=== PATIENT | male | born 1985 | race Caucasian/White ===

== ENCOUNTER 2018-03-30 23:32 | Observation (INO) | payer BC ==
--- OUTSIDE RECORDS SUMMARY | 2018-03-30 23:35 | XMS REPORT | Clinical Summary ---
:1985 Author Organization [facility] Address [address] [place] [address] Care Team Providers Name Role Phone Devon Hill Primary Care Provider Allergies No Known Allergies Medications Medication Sig Dispensed Refills Start Date End Date Status lisinopril Take 10 mg by 0 Active (PRINIVIL,ZESTRIL) mouth daily. 10 MG tablet omeprazole Take 40 mg by 0 Active (PRILOSEC) 40 MG mouth daily. capsule tadalafil (CIALIS) Take 5 mg by 0 Active 5 MG tablet mouth daily as needed for Erectile Dysfunction. celecoxib Take 1 capsule 7 capsule 0 03/24/2017 03/31/2017 (CELEBREX) 200 MG (200 mg total) by capsule mouth daily for 7 days. cefadroxil Take 1 capsule 14 capsule 0 03/23/2017 03/30/2017 (DURICEF) 500 MG (500 mg total) by capsule mouth 2 (two) times daily for 7 days. Active Problems Problem Noted Date Surgery, elective 03/23/2017 Admission for reversal of vasectomy 03/23/2017 Social History Tobacco Use Types Packs/Day Years Used Date Never Smoker Smokeless Tobacco: Current User Snuff Comments: 2 cans/week. Alcohol Use Drinks/Week oz/Week Comments Yes 24 Cans of beer 14.4 Sex Assigned at Date Recorded Not on file Job Start Date Occupation Industry Not on file Not on file Not on file Travel History Travel Start Travel End No recent travel history available. Last Filed Vital Signs Not on file Plan of Treatment Not on file Results Not on fileafter 03/29/2017 Insurance Payer Benefit Plan / Group Subscriber ID Type Phone Address [employer] xxxxxxxxx Advance Directives For more information, please contact:[address] [phone] Code Status Date Activated Date Inactivated Comments Full Code 03/23/2017 8:06 AM 03/23/2017 6:27 PM This code status was determined by: Patient
--- OUTSIDE RECORDS SUMMARY | 2018-03-30 23:35 | XMS REPORT ---
:1985 [facility] Address [address] [place] [address] Dr. Torres [address] [place] [id number] Care Team Providers Name Role Phone SHANTAAMYHARSHIL FELDMAN I. Unavailable Unavailable Problems This patient has no known problems. Allergies, Adverse Reactions, Alerts This patient has no known allergies or adverse reactions. Medications This patient has no known medications. Results Test Description Test Time Test Comments Text Results Atomic Results Result Comments ELECTROLYTES 2017-03-18 14:34:00 Test Item Value Reference Range Comments SODIUM (BEAKER) (test upin=414) 132 meq/L 136-145 POTASSIUM (BEAKER) (test txsx=364) 3.9 meq/L 3.5-5.1 CHLORIDE (BEAKER) (test fciu=429) 99 meq/L 98-107 CO2 (BEAKER) (test xjdv=809) 30 meq/L 22-29 BUN AND [id number] 14:34:00 Test Item Value Reference Range Comments BLOOD UREA NITROGEN 8 mg/dL 7-21 (BEAKER) (test pyll=001) CREATININE (BEAKER) (test 0.98 mg/dL 0.57-1.25 rqwc=054) EGFR (BEAKER) (test 89 mL/min/1.73 sq m ESTIMATED GFR IS NOT gflj=8816) ACCURATE CREATININE CLEARANCE IN PREDICTING GLOMERULAR FILTRATION RATE. ESTIMATED GFR IS NOT APPLICABLE FOR DIALYSIS PATIENTS. [id number] 14:18:00 Test Item Value Reference Range Comments HEMOGLOBIN (BEAKER) (test rvll=311) 15.7 GM/DL 13.7-17.5
[2018-03-31] MEDS ORDERED: ASPIRIN 81 MG CHEWABLE TABLET ONE (00:19)
[2018-03-31 00:34] LABS: Absolute Lymphocytes (CBC) 1.6 K/uL (0.7-4.9); Absolute Monocytes 0.5 K/uL (0.1-1.3); Absolute Neutrophil 6.2 K/uL (1.8-8.0); Basophils % 0.6 % (0-1.3); Eosinophils % 1.5 % (0-4.4); Lymphocytes % 19.2 % (15.3-44.8); MPV 9.7 fL (7.6-11.3); RBC Red Blood Cell Count 5.55 M/uL (4.33-5.43)
[2018-03-31 00:43] LABS: Protime INR 1.02
[2018-03-31 00:54] LABS: ALT/SGPT 42 U/L (12-78); AST/SGOT 23 U/L (15-37); Albumin 4.5 g/dL (3.4-5.0); Alkaline Phosphatase 73 U/L (45-117); BUN Blood Urea Nitrogen 10 mg/dL (7-18); Bicarbonate 27 mmol/L (21-32); Bilirubin Direct 0.3 mg/dL (0-0.2); Bilirubin Total 1.2 mg/dL (0.2-1.0); Glucose Level 131 mg/dL (74-106); Magnesium 2.3 mg/dL (1.8-2.4); NT PRO-BNP 9 pg/mL (<125); Potassium 3.4 mmol/L (3.5-5.1); Sodium Level 138 mmol/L (136-145); Troponin (Emerg Dept Use Only) < 0.02 ng/mL (0.0-0.045)
[2018-03-31] MEDS ORDERED: NA CHLORIDE 0.9% 1,000 ML ONE (01:25)
--- NOTE | 2018-03-31 02:59 | ER ---
Nurse's Notes [facility] Name: Federico Resendiz Age: 32 yrs Sex: Male : 1985 Arrival Date: 03/30/2018 Time: 23:41 Bed 19 Private MD: Devon Saldana R Diagnosis: Other chest pain;Essential (primary) hypertension;Hypokalemia Presentation: 03/30 23:57 Presenting complaint: Patient states: while I'm sitting sudden central and left arm rr5 pain felt at 2130H tonight associated with numbness feeling cold and weak of the left arm. pain score of 6/10. right now I don't have any pain only numbness on the left arm. Transition of care: patient was not received from another setting of care. Onset of symptoms was March 30, 2018 at 21:30. Risk Assessment: Do you want to hurt yourself or someone else? Patient reports no desire to harm self or others. Initial Sepsis Screen: Does the patient meet any 2 criteria? No. Patient's initial sepsis screen is negative. Initial Sepsis Screen: Does the patient have a suspected source of infection? No. Patient's initial sepsis screen is negative. Care prior to arrival: None. 23:57 Method Of Arrival: Ambulatory rr5 23:57 Acuity: BUD 3 rr5 Historical: - Allergies: 03/31 00:00 No Known Allergies; rr5 - Home Meds: 00:00 Lisinopril Oral [Active]; Omeprazole Oral [Active]; Lorazepam Oral [Active]; Cialis rr5 oral oral [Active]; - PMHx: 00:00 Hypertension; acid reflux; rr5 - PSHx: 00:00 Vasectomy; reversal of vasectomy; rr5 - Immunization history:: Adult Immunizations up to date. - Social history:: Smoking status: Patient uses tobacco products, chewing tobacco, Patient uses alcohol, admits to "couple of beers" a day. Patient/guardian denies using street drugs. - Ebola Screening: : Patient negative for fever greater than or equal to 101.5 degrees Fahrenheit, and additional compatible Ebola Virus Disease symptoms Patient denies exposure to infectious person Patient denies travel to an Ebola-affected area in the 21 days before illness onset. Screenin:00 Abuse screen: Denies threats or abuse. Denies injuries from another. Nutritional rr5 screening: No deficits noted. Tuberculosis screening: No symptoms or risk factors identified. Fall Risk None identified. Assessment: 00:00 General: Appears in no apparent distress. comfortable, Behavior is calm, cooperative, rr5 appropriate for age. Pain: Complains of pain in chest Pain radiates to left arm Pain currently is 0 out of 10 on a pain scale. Quality of pain is described as aching, Pain began suddenly, Is intermittent. Neuro: Level of Consciousness is awake, alert, obeys commands, Oriented to person, place, time, situation, Appropriate for age Reports numbness in left arm. Cardiovascular: Reports chest pain, Capillary refill < 3 seconds Patient's skin is warm and dry. 00:00 Respiratory: Airway is patent Respiratory effort is even, unlabored, Respiratory rr5 pattern is regular, symmetrical. GI: No signs and/or symptoms were reported involving the gastrointestinal system. : Urine is clear. EENT: No signs and/or symptoms were reported regarding the EENT system. Derm: No signs and/or symptoms reported regarding the dermatologic system. Musculoskeletal: No signs and/or symptoms reported regarding the musculoskeletal system. 01:00 Reassessment: Patient appears in no apparent distress at this time. Patient is alert, rr5 oriented x 3, equal unlabored respirations, skin warm/dry/pink. Patient states feeling better. Patient states symptoms have improved. 02:00 Reassessment: Patient appears in no apparent distress at this time. Patient is alert, rr5 oriented x 3, equal unlabored respirations, skin warm/dry/pink. repeat cardiac enzymes sent. no complaints made. Patient states feeling better. Patient states symptoms have improved. Vital Signs: 03/30 23:57 BP 155 / 90; Pulse 96; Resp 18; Temp 98.4; Pulse Ox 98% ; Weight 92.99 kg; Height 6 ft. rr5 1 in. (185.42 cm); Pain 0/10; 03/31 01:00 BP 141 / 70; Pulse 85; Resp 16; Pulse Ox 99% ; rr5 01:30 BP 134 / 86; Pulse 84; Resp 17; Pulse Ox 99% ; rr5 02:00 BP 135 / 86; Pulse 75; Resp 17; Pulse Ox 99% ; rr5 03:00 BP 131 / 70; Pulse 62; Resp 17; Pulse Ox 98% ; rr5 03:50 BP 135 / 83; Pulse 60; Resp 16; Pulse Ox 100% ; rr5 03/30 23:57 Body Mass Index 27.05 (92.99 kg, 185.42 cm) rr5 ED Course: 03/30 23:41 Patient arrived in ED. am2 23:41 Devon Saldana MD is Private Physician. am2 23:46 Brice Ch, RN is Primary Nurse. rr5 23:48 Nabeel Kelly PA is PHCP. cp 23:49 Nabeel Bellamy MD is Attending Physician. cp 23:59 Triage completed. rr5 03/31 00:00 Arm band placed on. EKG completed in triage. Results shown to MD. EKG completed in rr5 triage. Results shown to MD. 00:00 Patient has correct armband on for positive identification. Placed in gown. Bed in low rr5 position. Call light in reach. Side rails up X 1. nuclear monitoring technician on. Pulse ox on. NIBP on. 00:15 Inserted saline lock: 20 gauge in right antecubital area, using aseptic technique. rr5 Blood collected. inserted by [employer] tech. 00:15 No provider procedures requiring assistance completed. Patient maintains SpO2 rr5 saturation greater than 95% on room air. 00:45 XRAY Chest (1 view) Sent. mw2 00:49 XRAY Chest (1 view) In Process Unspecified. EDMS 02:57 Devon Saldana MD is Hospitalizing Provider. virgilio 03:53 Patient admitted, IV remains in place. intact, No redness/swelling at site. rr5 04:15 Urine Dipstick--Ancillary (enter results) Sent. rr5 04:16 UDS Sent. rr5 Administered Medications: 00:17 Drug: Aspirin Chewable Tablet 324 mg Route: PO; rr5 02:55 Follow up: Response: No adverse reaction rr5 01:19 Drug: NS 0.9% 1000 ml Route: IV; Rate: 1 bolus; Site: right antecubital; rr5 02:02 Follow up: Response: No adverse reaction; IV Status: Completed infusion; IV Intake: rr5 1000ml 03:05 Drug: Lopressor 25 mg Route: PO; rr5 04:15 Follow up: Response: No adverse reaction rr5 03:06 Drug: Lovenox 1 mg/kg Route: Sub-Q; Site: right lower abdomen; rr5 04:16 Follow up: Response: No adverse reaction rr5 03:08 Drug: Potassium Effervescent Tablet 25 mEq Route: PO; rr5 04:15 Follow up: Response: No adverse reaction rr5 Intake: 02:02 IV: 1000ml; Total: 1000ml. rr5 Outcome: 02:58 Decision to Hospitalize by Provider. [facility] 03:50 Admitted to Med/surg accompanied by nurse, via wheelchair, with chart, Report called to rr5 03:50 Condition: stable 03:50 Instructed on the need for admit. 04:17 Patient left the ED. rr5 Signatures: Dispatcher [employer] EDUT Nabeel Bellamy MD MD cha Page, Corey, PA PA cp Moreno, Amanda [facility] Brenda Rice 2 Brice Ch RN RN rr5 Corrections: (The following items were deleted from the chart) 00:27 00:15 Inserted saline lock: 20 gauge in right antecubital area, using aseptic rr5 technique. Blood collected. rr5
--- NOTE | 2018-03-31 02:59 | EDPHYS ---
Physician Documentation [facility] Name: Federico Resendiz Age: 32 yrs Sex: Male : 1985 Arrival Date: 03/30/2018 Time: 23:41 Bed 19 Private MD: Devon Saldana R ED Physician Nabeel Bellamy HPI: 03/30 23:55 This 32 yrs old Male presents to ER via Ambulatory with complaints of Chest cp Pain. 23:55 The patient or guardian reports chest pain that is located primarily in the anterior cp chest wall, left. 23:55 The pain radiates to the left arm. Associated signs and symptoms: Pertinent positives: cp numbness/tingling of left arm, Pertinent negatives: abdominal pain, weakness. The chest pain is described as aching. Duration: The patient or guardian reports a single episode, that is now resolved, that lasted 1.5 hour(s). Historical: - Allergies: 03/31 00:00 No Known Allergies; rr5 - Home Meds: 00:00 Lisinopril Oral [Active]; Omeprazole Oral [Active]; Lorazepam Oral [Active]; Cialis rr5 oral oral [Active]; - PMHx: 00:00 Hypertension; acid reflux; rr5 - PSHx: 00:00 Vasectomy; reversal of vasectomy; rr5 - Immunization history:: Adult Immunizations up to date. - Social history:: Smoking status: Patient uses tobacco products, chewing tobacco, Patient uses alcohol, admits to "couple of beers" a day. Patient/guardian denies using street drugs. - Ebola Screening: : Patient negative for fever greater than or equal to 101.5 degrees Fahrenheit, and additional compatible Ebola Virus Disease symptoms Patient denies exposure to infectious person Patient denies travel to an Ebola-affected area in the 21 days before illness onset. ROS: 00:00 Constitutional: Negative for body aches, chills, fever, poor PO intake. cp 00:00 Eyes: Negative for injury, pain, redness, and discharge. cp 00:00 ENT: Negative for drainage from ear(s), ear pain, sore throat, difficulty swallowing, difficulty handling secretions. 00:00 Neck: Negative for pain with movement, stiffness, tenderness. 00:00 Cardiovascular: Positive for chest pain, Negative for edema, palpitations. 00:00 Respiratory: Negative for cough, shortness of breath, wheezing. 00:00 Abdomen/GI: Negative for abdominal pain, nausea, vomiting, and diarrhea, black/tarry stool, rectal bleeding. 00:00 Back: Negative for pain at rest, pain with movement, radiated pain. 00:00 : Negative for urinary symptoms. 00:00 MS/extremity: Positive for paresthesias, of the left arm, Negative for injury or acute deformity, decreased range of motion, swelling. 00:00 Skin: Negative for cellulitis, rash. 00:00 Neuro: Negative for altered mental status, headache, syncope, weakness. 00:00 All other systems are negative. Exam: 03/30 23:55 ECG was reviewed by the Attending Physician. cp 03/31 00:05 Constitutional: The patient appears in no acute distress, alert, awake, cp non-diaphoretic, non-toxic, well developed, well nourished. 00:05 Head/Face: Normocephalic, atraumatic. Eyes: Pupils equal round and reactive to light, cp extra-ocular motions intact. Lids and lashes normal. Conjunctiva and sclera are non-icteric and not injected. Cornea within normal limits. Periorbital areas with no swelling, redness, or edema. ENT: Nares patent. No nasal discharge, no septal abnormalities noted. Tympanic membranes are normal and external auditory canals are clear. Oropharynx with no redness, swelling, or masses, exudates, or evidence of obstruction, uvula midline. Mucous membranes moist. Chest/axilla: Normal chest wall appearance and motion. Nontender with no deformity. No lesions are appreciated. Cardiovascular: Regular rate and rhythm with a normal S1 and S2. No gallops, murmurs, or rubs. Normal PMI, no JVD. No pulse deficits. Respiratory: Lungs have equal breath sounds bilaterally, clear to auscultation and percussion. No rales, rhonchi or wheezes noted. No increased work of breathing, no retractions or nasal flaring. Abdomen/GI: Soft, non-tender, with normal bowel sounds. No distension or tympany. No guarding or rebound. No evidence of tenderness throughout. Skin: Warm, dry with normal turgor. Normal color with no rashes, no lesions, and no evidence of cellulitis. MS/ Extremity: Pulses equal, no cyanosis. Neurovascular intact. Full, normal range of motion. Neuro: Awake and alert, GCS 15, oriented to person, place, time, and situation. Cranial nerves II-XII grossly intact. Motor strength 5/5 in all extremities. Sensory grossly intact. Cerebellar exam normal. Normal gait. 02:10 ECG was reviewed by the Attending Physician. cp Vital Signs: 03/30 23:57 BP 155 / 90; Pulse 96; Resp 18; Temp 98.4; Pulse Ox 98% ; Weight 92.99 kg; Height 6 ft. rr5 1 in. (185.42 cm); Pain 0/10; 03/31 01:00 BP 141 / 70; Pulse 85; Resp 16; Pulse Ox 99% ; rr5 01:30 BP 134 / 86; Pulse 84; Resp 17; Pulse Ox 99% ; rr5 02:00 BP 135 / 86; Pulse 75; Resp 17; Pulse Ox 99% ; rr5 03:00 BP 131 / 70; Pulse 62; Resp 17; Pulse Ox 98% ; rr5 03:50 BP 135 / 83; Pulse 60; Resp 16; Pulse Ox 100% ; rr5 03/30 23:57 Body Mass Index 27.05 (92.99 kg, 185.42 cm) rr5 MDM: 03/30 23:51 Patient medically screened. cp 03/31 01:00 Differential diagnosis: abnormal EKG, acute myocardial infarction, acute pericarditis, cp esophagitis, gastritis, gastroesophageal reflux disease (GERD), pericarditis, pleurisy, pneumonia, pneumothorax, pulmonary embolus, stable angina, unstable angina. 03:00 Data reviewed: vital signs, nurses notes, lab test result(s), EKG, radiologic studies, cp plain films. 03:00 Test interpretation: by ED physician or midlevel provider: ECG, plain radiologic cp studies. 03/31 00:03 Order name: Basic Metabolic Panel; Complete Time: 01:05 cp 03/31 01:05 Interpretation: Normal except: K 3.4; GLUC 131; GFR 75. cp 03/31 00:03 Order name: CBC with Diff; Complete Time: 01:05 cp 03/31 01:06 Interpretation: Normal except: RBC 5.55; MCV 82.8. cp 03/31 00:03 Order name: LFT's; Complete Time: 01:05 cp 03/31 00:03 Order name: Magnesium; Complete Time: 01:05 cp 03/31 00:03 Order name: NT PRO-BNP; Complete Time: 01:05 cp 03/31 00:03 Order name: PT-INR; Complete Time: 01:05 cp 03/31 00:03 Order name: Troponin (emerg Dept Use Only); Complete Time: 01:05 cp 03/31 00:03 Order name: XRAY Chest (1 view) cp 03/31 00:03 Order name: D-Dimer; Complete Time: 01:05 cp 03/31 00:13 Order name: UDS cp 03/31 01:47 Order name: Troponin (emerg Dept Use Only); Complete Time: 02:39 cp 03/31 03:33 Order name: Urine Dipstick--Ancillary (enter results) gm 03/31 04:06 Order name: Urine Dipstick-Ancillary EDMS 03/31 00:03 Order name: EKG; Complete Time: 00:05 cp 03/31 00:03 Order name: Cardiac monitoring; Complete Time: 00:06 cp 03/31 00:03 Order name: EKG - Nurse/Tech; Complete Time: 00:06 cp 03/31 00:03 Order name: IV Saline Lock; Complete Time: 00:17 cp 03/31 00:03 Order name: Labs collected and sent; Complete Time: 00:17 cp 03/31 00:03 Order name: O2 Per Protocol; Complete Time: 00:07 cp 03/31 00:03 Order name: O2 Sat Monitoring; Complete Time: 00:07 cp 03/31 01:47 Order name: EKG - Nurse/Tech; Complete Time: 02:13 cp 03/31 01:47 Order name: EKG; Complete Time: 01:47 cp 03/31 01:47 Order name: Repeat Cardiac Enzymes at: 0200; Complete Time: 02:02 cp 03/31 02:56 Order name: PO challenge: juice; Complete Time: 03:09 virgilio EC/23 23:55 Rate is 94 beats/min. Rhythm is regular. NM interval is normal. QRS interval is normal. cp QT interval is normal. Interpreted by me. Reviewed by me. 03/31 02:10 Rate is 80 beats/min. Rhythm is regular. NM interval is normal. QRS interval is normal. cp QT interval is normal. T waves are Inverted in leads III, aVF. Interpreted by me. Reviewed by me. Administered Medications: 00:17 Drug: Aspirin Chewable Tablet 324 mg Route: PO; rr5 02:55 Follow up: Response: No adverse reaction rr5 01:19 Drug: NS 0.9% 1000 ml Route: IV; Rate: 1 bolus; Site: right antecubital; rr5 02:02 Follow up: Response: No adverse reaction; IV Status: Completed infusion; IV Intake: rr5 1000ml 03:05 Drug: Lopressor 25 mg Route: PO; rr5 04:15 Follow up: Response: No adverse reaction rr5 03:06 Drug: Lovenox 1 mg/kg Route: Sub-Q; Site: right lower abdomen; rr5 04:16 Follow up: Response: No adverse reaction rr5 03:08 Drug: Potassium Effervescent Tablet 25 mEq Route: PO; rr5 04:15 Follow up: Response: No adverse reaction rr5 Disposition: 08:50 Co-signature as Attending Physician, Nabeel Bellamy MD I agree with the assessment and virgilio plan of care. Disposition: 03/31/18 02:58 Hospitalization ordered by Devon Saldana for Observation. Preliminary diagnosis are Other chest pain, Essential (primary) hypertension, Hypokalemia. - Bed requested for Telemetry/MedSurg (observation). - Status is Observation. rr5 - Condition is Stable. - Problem is new. - Symptoms have improved. UTI on Admission? No Signatures: Dispatcher [employer] EDMS Nabeel Bellamy MD MD cha Page, Corey, PA PA cp Garcia, Cindy, RN RN cg Brice Ch RN RN rr5 Corrections: (The following items were deleted from the chart) 02:58 02:58 Hospitalization Ordered by Devon Saldana MD for Observation. Preliminary diagnosis virgilio is Other chest pain; Essential (primary) hypertension. Bed requested for Telemetry/MedSurg (observation). Status is Observation. Condition is Stable. Problem is new. Symptoms have improved. UTI on Admission? No. virgilio 03:05 02:58 03/31/2018 02:58 Hospitalization Ordered by Devon Saldana MD for Observation. cg Preliminary diagnosis is Other chest pain; Essential (primary) hypertension; Hypokalemia. Bed requested for Telemetry/MedSurg (observation). Status is Observation. Condition is Stable. Problem is new. Symptoms have improved. UTI on Admission? No. virgilio 04:17 03:05 03/31/2018 02:58 Hospitalization Ordered by Devon Saldana MD for Observation. rr5 Preliminary diagnosis is Other chest pain; Essential (primary) hypertension; Hypokalemia. Bed requested for Telemetry/MedSurg (observation). Status is Observation. Condition is Stable. Problem is new. Symptoms have improved. UTI on Admission? No.
[2018-03-31] MEDS ORDERED: ENOXAPARIN 100 MG/ML SYR SQ ONE (03:09)
[2018-03-31] MEDS ORDERED: METOPROLOL TAR 25 MG TAB ONE (03:09)
[2018-03-31] MEDS ORDERED: POTASSIUM 25 MEQ EFFERV TAB ONE (03:09)
[2018-03-31 04:06] LABS: Urine Blood NEGATIVE (NEG); Urine Glucose NEGATIVE (NEG); Urine Protein NEGATIVE (NEG); Urine pH 6.5 (5.0-7.0)
[2018-03-31] MEDS ORDERED: MORPHINE 4 MG/ML SYR IV PRN (04:23)
[2018-03-31] MEDS ORDERED: ONDANSETRON 4 MG/2 ML VIAL IV PRN (04:23)
[2018-03-31] MEDS ORDERED: ACETAMINOPHEN 500 MG TAB PO PRN (04:23)
[2018-03-31 04:31] LABS: Barbiturates NEGATIVE (NEGATIVE); Benzodiazepines NEGATIVE (NEGATIVE); Cocaine NEGATIVE (NEGATIVE); METHAMPHETAM NEGATIVE (NEGATIVE); Methadone NEGATIVE (NEGATIVE); Opiates NEGATIVE (NEGATIVE); Phencyclidine NEGATIVE (NEGATIVE); THC Cannibis NEGATIVE (NEGATIVE)
[2018-03-31] MEDS: METOPROLOL TAR 25 MG TAB PO SCH ×2 (05:05→17:55)
[2018-03-31 05:10] VITALS: BMI 26.2
[2018-03-31 05:43] VITALS: O2SAT 100
--- NOTE | 2018-03-31 06:41 | RAD REPORT ---
EXAM DESCRIPTION: RAD - Chest Single View - 03/31/2018 12:43 am CLINICAL HISTORY: Left-sided chest and arm pain, hypertension COMPARISON: March 2012 TECHNIQUE: AP portable chest image was obtained 0028 hours . FINDINGS: Lungs are clear. Heart and vasculature are normal. No measurable pleural effusion and no p neumothorax. No acute bony abnormality seen. No acute aortic findings suspected. IMPRESSION: No acute cardiopulmonary process. No significant interval change.
[2018-03-31 08:53] LABS: Urine Appearance CLEAR; Urine Bilirubin NEGATIVE (NEG); Urine Blood NEGATIVE (NEG); Urine Color YELLOW; Urine Glucose NEGATIVE (NEG); Urine Protein NEGATIVE (NEG); Urine Specific Gravity 1.015 (1.005-1.030); Urine Urobilinogen 0.2 mg/dL (0.2-1.0)
[2018-03-31] MEDS ORDERED: FAMOTIDINE 20 MG/2 ML VIAL IV SCH (09:00)
[2018-03-31] MEDS ORDERED: LISINOPRIL 20 MG TAB PO SCH (09:00)
[2018-03-31] MEDS ORDERED: ASPIRIN EC 81 MG TAB PO SCH (09:00)
[2018-03-31 10:04] LABS: Urine RBC <5 /HPF (NONE SEEN)
[2018-03-31 10:05] LABS: Urine Bacteria NONE SEEN /HPF (NONE SEEN); Urine Culture Reflex Order NOT NEEDED
--- NOTE | 2018-03-31 10:44 | EKG ---
Test Date: 2018-03-31 Test Time: 02:04:04 Data Processing Mechanic: RR MEASUREMENT RESULTS: Intervals: Rate: 80 AK: 168 QRSD: 82 QT: 376 QTc: 433 [place]: P: 51 AK: 168 QRS: 33 T: 23 INTERPRETIVE STATEMENTS: Normal sinus rhythm Nonspecific T wave abnormality Abnormal ECG Compared to ECG 03/30/2018 23:53:16 No significant changes Electronically Signed On 03-31-18 10:42:46 ASSISTANT PRESSMAN by Mann Molina
--- NOTE | 2018-03-31 10:44 | EKG ---
Test Date: 2018-03-30 Test Time: 23:53:16 [employer] Talent: KIANNA MEASUREMENT RESULTS: Intervals: Rate: 94 ND: 158 QRSD: 84 QT: 334 QTc: 417 [place]: P: 57 ND: 158 QRS: 25 T: 37 INTERPRETIVE STATEMENTS: Normal sinus rhythm Nonspecific T wave abnormality Abnormal ECG Compared to ECG 08/22/2008 10:03:02 T-wave abnormality now present Sinus bradycardia no longer present Electronically Signed On 03-31-18 10:42:48 COST ESTIMATING MANAGER by Mann Molina
[2018-03-31 17:03] VITALS: BP 131/76; TEMP 97.4
--- NOTE | 2018-03-31 17:21 | ECHO ---
HEIGHT: 6 ft 1 in WEIGHT: 199 lb 1.6 oz DATE OF STUDY: 03/31/[address]: Nabeel Bellamy MD 2-DIMENSIONAL: YES M.MODE: YES DOPPLER: YES COLOR FLOW: YES TDS: PORTABLE: DEFINITY: BUBBLE STUDY: DIAGNOSIS: CHEST PAIN, PALPITATIONS. CARDIAC HISTORY: CATHERIZATION: NO SURGERY: NO PROSTHETIC VALVE: NO PACEMAKER: NO MEASUREMENTS (cm) DIASTOLIC (NORMALS) SYSTOLIC (NORMALS) IVSd 1.0 (0.6-1.2) LA Diam 3.5 (1.9-4.0) LVEF 66% LVIDd 3.5 (3.5-5.7) LVIDs 2.2 (2.0-3.5) %FS 36% LVPWd 1.2 (0.6-1.2) Ao Diam 3.4 (2.0-3.7) 2 DIMENSIONAL ASSESSMENT: RIGHT ATRIUM: NORMAL LEFT ATRIUM: NORMAL RIGHT VENTRICLE: NORMAL LEFT VENTRICLE: NORMAL TRICUSPID VALVE: NORMAL MITRAL VALVE: NORMAL PULMONIC VALVE: NORMAL AORTIC VALVE: NORMAL PERICARDIAL EFFUSION: NONE AORTIC ROOT: NORMAL LEFT VENTRICULAR WALL MOTION: NORMAL DOPPLER/COLOR FLOW: NORMAL COMMENTS: NORMAL TWO DIMENSIONAL ECHOCARDIOGRAM WITH DOPPLER. NO WALL MOTION ABNORMALITY. NO EFFUSION. TECHNOLOGIST: SHARONA WILDER
--- NOTE | 2018-04-01 04:18 | HP ---
Date of Admission: 03/31/2018 Chief Complaint: Pain in the left , numbness, feeling weak, and multiple complaints. History Of Present Illness: The patient was brought to the emergency room with these complaints and he had evaluation done. The patient's EKG, blood tests did not show any acute problems. The patient was admitted for observation. There is no history of prior heart disease. Past Medical History: Positive for hypertension, acid reflux disease, and anxiety. Family History: Negative other than history of possible coronary artery disease on his dad's side. Allergies: NONE. Home Medicines: Lisinopril, omeprazole, Ativan. Surgical History: Vasectomy and reversal of vasectomy. Review of Systems: No fever, chills, rigors. Physical Examination: General: Revealed a 32-year-old male, anxious. Vital Signs: Normal. HEENT: Negative. Neck: Supple. JVD negative. Chest: Clear. Heart: Regular. Abdomen: Soft. Extremities: No edema. Laboratory Data: EKG, nonspecific changes. Chest x-ray negative. Lab work normal. Assessment: 1.Episode of palpitations with multiple vague symptoms. 2.Chest pain. 3.Hypertension. 4.History of anxiety. 5.History of acid reflux disease. Plan: The patient on detailed history taking, admits to having multiple episodes of palpitations las ting for a few minutes. The patient, however, also has history of anxiety. It is not clear from the history whether he was having anxiety spells or whether he had short runs of PSVT. The patient's ec hocardiogram is reported as normal. I spoke to the Cardiology on consult. He does not think that an y further workup is necessary. The patient will be seen in the office. He will be started on beta b locker and see how response would be. JAGRUTI/MYRON Voice ID: [id number]
--- NOTE | 2018-04-01 08:08 | CON ---
Date of Consultation: 03/31/[address] Saldana's service on 03/31/2018. I saw the patient on 03/31/2018. Reason For Consultation: Chest pain. History Of Present Illness: Mr. Resendiz is a 32-year-old white male, has a history of hypertension, ga stroesophageal reflux disease, anxiety and panic disorder. Came in with mostly palpitation, sharp ch est pain, anxiety. No nausea, vomiting, diaphoresis, PND, orthopnea, pedal edema, or syncope. He do es drink alcohol, and he does not drink coffee excessively. Denies use of energy drinks or drugs. Past Medical History: Include hypertension, gastroesophageal reflux disease. Allergies: NONE. Review of Systems: Negative. Social History: As stated earlier. Family History: Noncontributory. Medications: At home include lisinopril, Ativan, Prilosec, and Cialis. Physical Examination: General: Mr. Resendiz appeared to be slightly anxious, but in no acute distress. Vital Signs: Stable, afebrile. HEENT: Negative. Neck: Supple with no bruit. Chest: Clear. Cardiac: Revealed a regular rhythm and rate without any murmurs, gallops, or rubs. Abdomen: Benign. Extremities: Revealed no clubbing, cyanosis, or edema. Diagnostic Data: Positive for potassium of 3.4, his glucose was 137. Impression And Plan: Atypical chest pain, which only lasts seconds, nonradiating, nonexertional, unl ikely to be coronary artery disease certainly at his age. He does have palpitations, this certainly could be supraventricular tachycardia, although we have not seen anything on telemetry so far. I bel ieve he could be just having sinus tachycardia, may be related to some anxiety and panic. Neverthele ss, an echocardiogram I think is reasonable to rule out any wall motion abnormalities or valvular hea rt disease. I would suggest changing his lisinopril to a beta juanjo, that may help with his anxiet y as well as palpitation and the blood pressure. A routine stress test as an outpatient may be reaso nable. If the echocardiogram is normal, he can certainly go home, and I will see him in the office a s an outpatient. The case was discussed with Dr. Saldana. LUISITO/MYRON Voice ID: [id number] Report ID: [id number]
== END 2018-03-31 18:35 | disposition home or self-care (01) ==
LOC: ER 23:32 → ERHOLD 03-31 02:59 → 2ND 03-31 03:53
PROVIDERS: ADMIT Internal Medicine; ATTEND Internal Medicine
DX: R07.9 Chest pain, unspecified (principal); R00.2 Palpitations; I10 Essential (primary) hypertension; F41.9 Anxiety disorder, unspecified; K21.9 Gastro-esophageal reflux disease without esophagitis
CPT/HCPCS: 36415; 71045; 80048; 80076; 80307; 81001; 81003; 83735; 83880; 84132; 84484; 85025; 85379; 85610; 93005; 93306; 96360; 96372; 99285; G0378; J1650; J7030

== ENCOUNTER 2018-10-24 13:32 | Emergency (ER) | payer BC ==
--- OUTSIDE RECORDS SUMMARY | 2018-10-24 13:34 | XMS REPORT ---
:1985 [facility] [address] [address] [place] [id number] Care Team Providers Name Role Phone SAUD HARSHIL Scarlet Unavailable Unavailable Problems This patient has no known problems. Allergies, Adverse Reactions, Alerts This patient has no known allergies or adverse reactions. Medications This patient has no known medications. Results Test Description Test Time Test Comments Text Results Atomic Results Result Comments ELECTROLYTES 2017-03-18 14:34:00 Test Item Value Reference Range Comments SODIUM (BEAKER) (test atnl=399) 132 meq/L 136-145 POTASSIUM (BEAKER) (test lvuy=021) 3.9 meq/L 3.5-5.1 CHLORIDE (BEAKER) (test urdg=368) 99 meq/L 98-107 CO2 (BEAKER) (test nfxp=217) 30 meq/L 22-29 BUN AND [id number] 14:34:00 Test Item Value Reference Range Comments BLOOD UREA NITROGEN 8 mg/dL 7-21 (BEAKER) (test mfjk=579) CREATININE (BEAKER) (test 0.98 mg/dL 0.57-1.25 rtqh=392) EGFR (BEAKER) (test 89 mL/min/1.73 sq m ESTIMATED GFR IS NOT etcw=2082) ACCURATE CREATININE CLEARANCE IN PREDICTING GLOMERULAR FILTRATION RATE. ESTIMATED GFR IS NOT APPLICABLE FOR DIALYSIS PATIENTS. [id number] 14:18:00 Test Item Value Reference Range Comments HEMOGLOBIN (BEAKER) (test dbck=331) 15.7 GM/DL 13.7-17.5
--- OUTSIDE RECORDS SUMMARY | 2018-10-24 13:34 | XMS REPORT | Clinical Summary ---
:[address] [facility] Address [facility] [place] [address] Care Team Providers Name Role Phone Liz Devon Kwame Primary Care Provider Allergies No Known Allergies Medications Medication Sig Dispensed Refills Start Date End Date Status lisinopril Take 10 mg by mouth 0 Active (PRINIVIL,ZESTRIL) 10 daily. MG tablet omeprazole (PRILOSEC) Take 40 mg by mouth 0 Active 40 MG capsule daily. tadalafil (CIALIS) 5 Take 5 mg by mouth 0 Active MG tablet daily as needed for Erectile Dysfunction. Active Problems Problem Noted Date Surgery, elective [...] Not on file Results Not on fileafter 10/23/2017 Insurance Payer Benefit Plan / Group Subscriber ID Type Phone Address [employer] xxxxxxxxx Advance Directives For more information, please contact:[id number] [facility] [place], [place] [phone] Code Status Date Activated Date Inactivated Comments Full Code 03/23/2017 8:06 AM 03/23/2017 6:27 PM This code status was determined by: Patient
[2018-10-24 14:33] LABS: Urine Bacteria NONE SEEN /HPF (NONE SEEN); Urine Culture Reflex Order NOT NEEDED; Urine RBC NONE SEEN /HPF (NONE SEEN)
[2018-10-24 14:34] LABS: Absolute Lymphocytes (CBC) 1.3 K/uL (0.7-4.9); Basophils % 0.6 % (0-1.3); Hematocrit 43.6 % (39.6-49.0); Lymphocytes % 26.2 % (15.3-44.8); MPV 9.3 fL (7.6-11.3); RBC Red Blood Cell Count 5.19 M/uL (4.33-5.43)
[2018-10-24 14:51] LABS: Albumin 4.2 g/dL (3.4-5.0); Bilirubin Direct 0.2 mg/dL (0-0.2); Bilirubin Total 0.8 mg/dL (0.2-1.0); Potassium 4.3 mmol/L (3.5-5.1); Protein, Total 7.6 g/dL (6.4-8.2)
[2018-10-24 15:07] LABS: Urine Blood NEGATIVE (NEG); Urine Glucose NEGATIVE (NEG); Urine Protein NEGATIVE (NEG); Urine Specific Gravity 1.015 (1.005-1.030); Urine pH 5.5 (5.0-7.0)
--- NOTE | 2018-10-24 15:14 | RAD REPORT ---
EXAM DESCRIPTION: CTAbdomen Pelvis W Contrast - 10/24/2018 3:07 pm CLINICAL HISTORY: Abdominal pain. RLQ/groin pain COMPARISON: <Comparisons> TECHNIQUE: Biphasic CT imaging of the abdomen and pelvis was performed with 100 ml non-ionic IV cont rast. All CT scans are performed using dose optimization technique as appropriate and may include automated exposure control or mA/KV adjustment according to patient size. FINDINGS: The lung bases are clear. The liver, spleen, pancreas, adrenal glands and kidneys are within normal limits. No bowel obstruction, free air, free fluid or abscess. The appendix is normal. No evidence of signi ficant lymphadenopathy. No suspicious bony findings. Mild fluid is seen in both scrotal sacs. IMPRESSION: No acute intra-abdominal or pelvic finding.
--- NOTE | 2018-10-24 15:46 | ER ---
Nurse's Notes [facility] Name: Federico Resendiz Age: 33 yrs Sex: Male : 1985 Arrival Date: 10/24/2018 Time: 13:35 Bed 28 Private MD: Devon Saldana R Diagnosis: Lower abdominal pain, unspecified Presentation: 10/24 13:51 Presenting complaint: Patient states: RLQ pain that began 2-3 days ago. Pt denies aa5 nausea/vomiting. Pt states "I am having loose bowel movements". Transition of care: patient was not received from another setting of care. Onset of symptoms was October 2018. Risk Assessment: Do you want to hurt yourself or someone else? Patient reports no desire to harm self or others. Initial Sepsis Screen: Does the patient meet any 2 criteria? No. Patient's initial sepsis screen is negative. Does the patient have a suspected source of infection? No. Patient's initial sepsis screen is negative. Care prior to arrival: None. 13:51 Acuity: BUD 3 aa5 13:51 Method Of Arrival: Ambulatory aa5 Historical: - Allergies: 13:54 No Known Allergies; aa5 - Home Meds: 13:54 lisinopril 20 mg oral tab once daily [Active]; omeprazole 40 mg oral cpDR once daily aa5 [Active]; Cialis 5 mg oral tab once daily [Active]; Lorazepam Oral [Active]; - PMHx: 13:54 acid reflux; Hypertension; aa5 - PSHx: 13:54 Vasectomy; reversal of vasectomy; aa5 - Immunization history:: Adult Immunizations up to date. - Social history:: Smoking status: Patient uses tobacco products, chewing tobacco. - Ebola Screening: : No symptoms or risks identified at this time. - Family history:: not pertinent. - Hospitalizations: : No recent hospitalization is reported. Screenin:13 Abuse screen: Denies threats or abuse. Denies injuries from another. Nutritional rv screening: No deficits noted. Tuberculosis screening: No symptoms or risk factors identified. Fall Risk None identified. Assessment: 14:12 General: Appears in no apparent distress. uncomfortable, Behavior is calm, cooperative. rv Pain: Complains of pain in abdomen. Neuro: Level of Consciousness is awake, alert, obeys commands, Oriented to person, place, time, situation. Cardiovascular: Patient's skin is warm and dry. Respiratory: Airway is patent. GI: Bowel sounds present X 4 quads. Abd is soft and non tender X 4 quads. : No signs and/or symptoms were reported regarding the genitourinary system. EENT: No signs and/or symptoms were reported regarding the EENT system. Derm: Skin is intact. Musculoskeletal: No signs and/or symptoms reported regarding the musculoskeletal system. Vital Signs: 13:54 BP 146 / 92; Pulse 68; Resp 18 S; Temp 98.4(O); Pulse Ox 98% on R/A; Weight 92.99 kg aa5 (R); Height 6 ft. 1 in. (185.42 cm) (R); Pain 7/10; 15:53 BP 128 / 86; Pulse 66; Resp 16; Temp 98; Pulse Ox 99% on R/A; rv 13:54 Body Mass Index 27.05 (92.99 kg, 185.42 cm) aa5 ED Course: 13:35 Patient arrived in ED. mr 13:36 Devon Saldana MD is Private Physician. mr 13:51 Triage completed. aa5 13:51 Arm band placed on. aa5 13:55 Barney Dang, BISI is Primary Nurse. rv 13:55 Alfa Garcia MD is Attending Physician. rn 14:13 Patient has correct armband on for positive identification. Placed in gown. Bed in low rv position. Call light in reach. Side rails up X 1. Pulse ox on. NIBP on. 14:17 Initial lab(s) drawn, by ks, sent to lab. Inserted saline lock: 20 gauge in left lt1 antecubital area, using aseptic technique. 15:02 CT completed. Patient tolerated procedure well. Patient moved to CT via wheelchair. sw Patient moved back from CT. 15:09 CT Abd/Pelvis - IV Contrast Only In Process Unspecified. EDMS 15:53 No provider procedures requiring assistance completed. IV discontinued, intact, rv bleeding controlled, No redness/swelling at site. Pressure dressing applied, by TAL assistant media planner. Administered Medications: No medications were administered Outcome: 15:46 Discharge ordered by . rn 15:54 Discharged to home ambulatory. rv 15:54 Condition: good 15:54 Discharge instructions given to patient, Instructed on discharge instructions, follow up and referral plans. Demonstrated understanding of instructions, follow-up care. 15:54 Patient left the ED. rv Signatures: Dispatcher [employer] Supriya Mcknight, MD MD bisi Grimm Audri RN RN Tameka Abarca Ronaldo, RN RN rv Tran, Leah 1
--- NOTE | 2018-10-24 15:46 | EDPHYS ---
Physician Documentation [facility] Name: Federico Resendiz Age: 33 yrs Sex: Male : 1985 Arrival Date: 10/24/2018 Time: 13:35 Bed 28 Private MD: Devon Saldana R ED Physician Alfa Garcia HPI: 10/24 14:48 This 33 yrs old Male presents to ER via Ambulatory with complaints of rn Abdominal Pain. 14:48 The patient presents with abdominal pain right lower quadrant. Onset: The rn symptoms/episode began/occurred 3 day(s) ago. The symptoms do not radiate. Associated signs and symptoms: Pertinent positives: diarrhea, Pertinent negatives: nausea and vomiting, anorexia, blood in stools, fever, hematuria, testicular pain, vomiting blood. The symptoms are described as achy. Modifying factors: The symptoms are alleviated by nothing, the symptoms are aggravated by touching the area. Severity of pain: At its worst the pain was mild in the emergency department the pain is unchanged. The patient has not experienced similar symptoms in the past. Reports right lower abd pain/groin pain, for 2-3 days, no trauma, no fever, no vomiting, + "loose stool", no blood in stool. No scrotal or testicular pain/swelling. No masses. Not currently hurting.. Historical: - Allergies: 13:54 No Known Allergies; aa5 - Home Meds: 13:54 lisinopril 20 mg oral tab once daily [Active]; omeprazole 40 mg oral cpDR once daily aa5 [Active]; Cialis 5 mg oral tab once daily [Active]; Lorazepam Oral [Active]; - PMHx: 13:54 acid reflux; Hypertension; aa5 - PSHx: 13:54 Vasectomy; reversal of vasectomy; aa5 - Immunization history:: Adult Immunizations up to date. - Social history:: Smoking status: Patient uses tobacco products, chewing tobacco. - Ebola Screening: : No symptoms or risks identified at this time. - Family history:: not pertinent. - Hospitalizations: : No recent hospitalization is reported. ROS: 14:48 Constitutional: Negative for fever, chills, and weight loss, Eyes: Negative for injury, rn pain, redness, and discharge, Neck: Negative for injury, pain, and swelling, Cardiovascular: Negative for chest pain, palpitations, and edema, Respiratory: Negative for shortness of breath, cough, wheezing, and pleuritic chest pain, Abdomen/GI: + abd pain and diarrhea, negative for vomiting/fever. Back: Negative for injury and pain, : Negative for injury, bleeding, discharge, and swelling, MS/Extremity: Negative for injury and deformity, Skin: Negative for injury, rash, and discoloration, Neuro: Negative for headache, weakness, numbness, tingling, and seizure. Exam: 14:48 Constitutional: This is a well developed, well nourished patient who is awake, alert, rn and in no acute distress. Head/Face: Normocephalic, atraumatic. Cardiovascular: Regular rate and rhythm. No pulse deficits. Respiratory: No increased work of breathing, no retractions or nasal flaring. Abdomen/GI: soft, non-tender, no masses, no groin swelling or lymphadenopathy, strong femoral pulse. MS/ Extremity: Pulses equal, no cyanosis. Neurovascular intact. Full, normal range of motion. Equal circumference. Neuro: Awake and alert, GCS 15, oriented to person, place, time, and situation. Vital Signs: 13:54 BP 146 / 92; Pulse 68; Resp 18 S; Temp 98.4(O); Pulse Ox 98% on R/A; Weight 92.99 kg aa5 (R); Height 6 ft. 1 in. (185.42 cm) (R); Pain 7/10; 15:53 BP 128 / 86; Pulse 66; Resp 16; Temp 98; Pulse Ox 99% on R/A; rv 13:54 Body Mass Index 27.05 (92.99 kg, 185.42 cm) aa5 MDM: 13:55 Patient medically screened. rn 15:45 Differential diagnosis: appendicitis, non-specific abd pain, Ureterolithiasis, hernia. rn Data reviewed: vital signs, nurses notes, lab test result(s), radiologic studies, CT scan, and as a result, I will discharge patient. Counseling: I had a detailed discussion with the patient and/or guardian regarding: the historical points, exam findings, and any diagnostic results supporting the discharge/admit diagnosis, lab results, radiology results, the need for outpatient follow up, to return to the emergency department if symptoms worsen or persist or if there are any questions or concerns that arise at home. Special discussion: Based on the patient's Hx, exam, and Dx evaluation, there is no indication for emergent surgery or inpatient Tx. It is understood by the patient/guardian that if the Sx's persist or worsen they need to return immediately for re-evaluation. I discussed with the patient/guardian in detail that at this point there is no indication for admission to the hospital. It is understood, however, that if the symptoms persist or worsen the patient needs to return immediately for re-evaluation. 10/24 13:56 Order name: Basic Metabolic Panel; Complete Time: 14:53 10/24 13:56 Order name: CBC with Diff; Complete Time: 14:53 10/24 13:56 Order name: Hepatic Function; Complete Time: 14:53 10/24 13:56 Order name: Lipase; Complete Time: 14:53 10/24 13:57 Order name: Urine Microscopic Only; Complete Time: 14:53 10/24 15:05 Order name: Urine Dipstick--Ancillary (enter results) bd 10/24 13:56 Order name: IV Saline Lock; Complete Time: 14:18 rn 10/24 13:56 Order name: Labs collected and sent; Complete Time: 14:18 10/24 13:57 Order name: Urine Dipstick-Ancillary (obtain specimen); Complete Time: 14:05 10/24 14:17 Order name: CT Abd/Pelvis - IV Contrast Only; Complete Time: 15:30 10/24 15:08 Order name: Urine Dipstick-Ancillary EDMS Administered Medications: No medications were administered Disposition: 10/24/18 15:46 Discharged to Home. Impression: Lower abdominal pain, unspecified. - Condition is Stable. - Discharge Instructions: Abdominal Pain, Adult. - Medication Reconciliation Form, Thank You Letter, Antibiotic Education, Prescription Opioid Use form. - Follow up: Private Physician; When: As needed; Reason: Recheck today's complaints, Re-evaluation by your physician. - Problem is new. - Symptoms have improved. Signatures: Dispatcher [employer] EDMS Alfa Garcia MD MD rn Calderon, Audri RN RN aa5 Barney Dang RN RN rv Corrections: (The following items were deleted from the chart) 14:49 14:48 Reports right lower abd pain/groin pain, for 2-3 days, no trauma, no fever, no rn vomiting, + "loose stool", no blood in stool. No scrotal or testicular pain/swelling. No masses.. rn 15:54 15:46 10/24/2018 15:46 Discharged to Home. Impression: Lower abdominal pain, rv unspecified. Condition is Stable. Forms are Medication Reconciliation Form, Thank You Letter, Antibiotic Education, Prescription Opioid Use. Follow up: Private Physician; When: As needed; Reason: Recheck today's complaints, Re-evaluation by your physician. Problem is new. Symptoms have improved. rn
[2018-10-24 17:33] VITALS: BP 128/86; TEMP 98; O2SAT 99
== END 2018-10-24 15:54 | disposition home or self-care (01) ==
LOC: ER 13:32
DX: R10.31 Right lower quadrant pain (principal); I10 Essential (primary) hypertension; K21.9 Gastro-esophageal reflux disease without esophagitis; Z72.0 Tobacco use
CPT/HCPCS: 85025; 80048; 36415; 80076; 83690; 74177; 99284; Q9967; 81003; 81015